=== PATIENT | female | born 1970 | race Asian ===

== ENCOUNTER 2017-06-14 12:02 | Emergency (ER) | payer OTHER ==
[~2017-06-14] VITALS: Ht 154.9 cm; Wt 77.1 kg
[2017-06-14 12:16] VITALS: BP 142/88
--- NOTE | 2017-06-14 12:21 | NUR ---
Patient to bed 12 by EMS at this time
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
[2017-06-14] MEDS ORDERED: KETOROLAC 60 MG/2 ML VIAL IM ONE (12:45)
--- NOTE | 2017-06-14 12:49 | NUR ---
MEDICATED ORDERED, AT BEDSIDE
--- NOTE | 2017-06-14 13:10 | NUR ---
PT BACK FROM X RAY
--- NOTE | 2017-06-14 13:14 | NUR ---
Patient appears to be resting comfortably in bed. Vital Signs within normal limits. Respirations even and unlabored.WILL CONTINUE TO MONITOR.
[2017-06-14 13:38] VITALS: BP 125/85
== END 2017-06-14 13:38 | disposition home or self-care (01) ==
LOC: MED 12:02
DX: S16.1XXA Strain of muscle, fascia and tendon at neck level, initial encounter (principal); V49.9XXA Car occupant (driver) (passenger) injured in unspecified traffic accident, initial encounter; Y93.I9 Activity, other involving external motion; Y92.488 Other paved roadways as the place of occurrence of the external cause; Y99.8 Other external cause status
CPT/HCPCS: 72040; 96372; 99284; J1885